=== PATIENT | male | born 1980 | race Caucasian/White ===

== ENCOUNTER 2016-12-10 20:24 | Emergency (ER) | payer SELFPAY ==
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
--- NOTE | 2016-12-10 21:53 | ED ORDER SUMMARY ---
..... Patient: CARSON MCCARTNEY OrderSheet [facility] VisitID: [id number] [address] [place] [address] 36y, M Registration Date/Time: 12/10/2016 ORDER SHEET Weight: 92 kg (stated) Allergies: No Known Drug Allergy GENERAL ORDERS: Urine Drug Screen Urgent (20:51 12/10/2016 AMcQuoid ER Tech1 verbal order read back to Betty HONG) (20:54 AMcQuoid ER Tech1) Breathalyzer (21:39 12/10/2016 Javan RICE) (21:43 AMcQuoid ER Tech1) MEDICATION ORDERS: Tdap IM 0.5 mL (NOW) (21:05 12/10/2016 Ingrid Shine verbal order read back to Javan RICE) (Ack 21:05 Ingrid R.N.) (21:12 Ingrid R.N.) IV FLUIDS: ORDER SHEET NOTES: [Electronically signed by Kevin Borden R.N. (22:12/10/2016)] [Electronically signed by Esau Vaca MD (10:34 12/14/2016)] [Electronically locked/signed by Kevin Borden R.N. (22:12/10/2016)]
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
--- NOTE | 2016-12-10 21:53 | ED ORDER SUMMARY ---
..... Patient: CARSON MCCARTNEY OrderSheet [facility] VisitID: [id number] [address] [place] [address] 36y, M Registration Date/Time: 12/10/2016 ORDER SHEET Weight: 92 kg (stated) Allergies: No Known Drug Allergy GENERAL ORDERS: Urine Drug Screen Urgent (20:51 12/10/2016 AMcQuoid ER Tech1 verbal order read back to Betty HONG) (20:54 AMcQuoid ER Tech1) Breathalyzer (21:39 12/10/2016 Javan RICE) (21:43 AMcQuoid ER Tech1) MEDICATION ORDERS: Tdap IM 0.5 mL (NOW) (21:05 12/10/2016 Ingrid Shine verbal order read back to Javan RICE) (Ack 21:05 Ingrid R.N.) (21:12 Ingrid R.N.) IV FLUIDS: ORDER SHEET NOTES: [Electronically signed by Kevin Borden R.N. (22:12/10/2016)] [Electronically signed by Esau Vaca MD (10:34 12/14/2016)] [Electronically locked/signed by Kevin Borden R.N. (22:12/10/2016)]
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
--- NOTE | 2016-12-14 10:35 | ED MAR SUMMARY ---
..... Medication Administration Record [facility] [address] [place] [address] Patient: CARSON MCCARTNEY Visit ID: [id number] 36y, M Weight: 92.0 kg Height/Length: 63 in BMI: 35.9 ALLERGIES: No Known Drug Allergy Given 21:12 12/10/2016 Kevin Borden RAngelaNAngela Medication Administered: TDAP [IM], Dose: 0.5 mL IM. Medication Ordered: Tdap IM 0.5 mL (NOW).
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
--- NOTE | 2016-12-14 10:35 | ED MAR SUMMARY ---
..... Medication Administration Record [facility] [address] [place] [address] Patient: CARSON MCCARTNEY Visit ID: [id number] 36y, M Weight: 92.0 kg Height/Length: 63 in BMI: 35.9 ALLERGIES: No Known Drug Allergy Given 21:12 12/10/2016 Kevin Borden RAngelaNAngela Medication Administered: TDAP [IM], Dose: 0.5 mL IM. Medication Ordered: Tdap IM 0.5 mL (NOW).
--- NOTE | 2016-12-14 10:35 | ED MED RECONCILIATION SUMMARY ---
Patient: CARSON MCCARTNEY Medication Reconciliation Report [facility] VisitID: [id number] [address] [place] [address] 36y, M Registration Date/Time: 12/10/2016 Weight: 92 kg Height/Length: 63 in. BMI: 35.9 ALLERGIES: No Known Drug Allergy The patient's Home Medications are listed below: NONE. The source(s) of the original Home Medication information: patient The following Medications were given to the patient in the Emergency Department: TDAP [IM] IM 0.5 mL, administered: 12/10/2016 9:12:00 PM The following Medications were prescribed to the patient: None.
--- NOTE | 2016-12-14 10:35 | ED MED RECONCILIATION SUMMARY ---
Patient: CARSON MCCARTNEY Medication Reconciliation Report [facility] VisitID: [id number] [address] [place] [address] 36y, M Registration Date/Time: 12/10/2016 Weight: 92 kg Height/Length: 63 in. BMI: 35.9 ALLERGIES: No Known Drug Allergy The patient's Home Medications are listed below: NONE. The source(s) of the original Home Medication information: patient The following Medications were given to the patient in the Emergency Department: TDAP [IM] IM 0.5 mL, administered: 12/10/2016 9:12:00 PM The following Medications were prescribed to the patient: None.
== END 2016-12-10 22:00 ==
LOC: ED SRH 20:24
DX: S01.411A Laceration without foreign body of right cheek and temporomandibular area, initial encounter (principal); F10.129 Alcohol abuse with intoxication, unspecified; W22.09XA Striking against other stationary object, initial encounter; Y93.02 Activity, running; Y92.9 Unspecified place or not applicable; Y99.9 Unspecified external cause status
CPT/HCPCS: 92760; 92761; 92762; 92763; 92764; 92765; 92766; 92767